=== PATIENT | male | born 1960 ===

== ENCOUNTER 2017-10-15 10:23 | Emergency (ER) | payer OTHER ==
--- NOTE | 2017-10-15 11:31 | ED PDOC ---
Syncope/Near Syncope/Dizziness Chief Complaint (Provider): syncope History Per: Patient History/Exam Limitations: no limitations Onset/Duration Of Symptoms: Hrs Current Symptoms Are (Timing): Better Number Of Syncopal Episodes: 1 Activity At Onset Of Symptoms: Had Just Stood up Associated Symptoms Preceding Syncopal Episode: Lightheadedness, Worse With Standing Seizure Or Post-ictal Symptoms: None Fall Associated With With Symptoms: Yes, Positive Injury Severity: Moderate Pain Scale Rating Of: 0 Additional Complaint(s): 56 yr old M presents to ED via ambulance with complaint of head trauma s/p syncopal episode. Patient denies any PMHx. Reports he was sitting in a restaurant waiting to order breakfast when he felt light headed, he stood up quickly to go to the bathroom with the intent to splash cold water on his face, he reports suddenly losing consciousness before making it to the bathroom. Syncopal episode was unwitnessed, patient reports he woke up on the floor and stood up by himself without assistance, he noticed blood on the floor and restaurant staff then called EMS when they saw a some blood on his head. Denies urinary or fecal incontinence, weakness, confusion, visual changes, chest pain, palpitations or one sided weakness. Denies prior syncopal episode. PMD: Dr. 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 Medications: multivitamins AllergiesL NKDA - Risk Factors PE Risk Factors: Neg: Extremity Immobilization/Fx, Decreased Mobilty /Activity, Recent Major Surgery, Previous DVT, Previous PE Risk Factors (Syncope): Neg: H/O Ventricular Arrhythmias, H/O Severe Valvular Disease, Exertional Syncope <Amanda Stafford - Last Filed: 10/15/17 16:58> <Mo Farooq - Last Filed: 10/16/17 14:48> Time Seen by Provider: 10/15/17 10:38 Chief Complaint (Nursing): Syncope Supervising Attending Note - Supervising Attending Note The Documented history was done by the: Physician Liner Worker, Attending Physician The documented physical exam was done by the: Physician Liner Worker, Attending Physician The documented procedures were done by the: Physician Liner Worker, Attending Physician - Attestation: I have personally seen and examined this patient.: Yes I have fully participated in the care of the patient.: Yes I have reviewed all pertinent clinical information: Yes <Mo Farooq - Last Filed: 10/16/17 14:48> Past Medical History Vital Signs: Last Vital Signs Temp 97.6 F 10/15/17 10:31 Pulse 82 10/15/17 10:31 Resp 18 10/15/17 10:31 BP 125/85 10/15/17 10:31 Pulse Ox 100 10/15/17 10:31 - Medical History PMH: No Chronic Diseases - Surgical History Surgical History: No Surg Hx - Family History Family History: States: Other Other Family History: father from heart attack at age 67 yrs old, mother alive and healthy - Living Arrangements Living Arrangements: With Family - Social History Current smoker - smoking cessation education provided: No Alcohol: Social Drugs: Denies - Immunization History Hx Tetanus Toxoid Vaccination: No Hx Influenza Vaccination: No Hx Pneumococcal Vaccination: No <Amanda Stafford - Last Filed: 10/15/17 16:58> Reviewed: Historical Data, Nursing Documentation, Vital Signs Vital Signs: Last Vital Signs Temp 97.6 F 10/15/17 10:31 Pulse 82 10/15/17 10:31 Resp 18 10/15/17 10:31 BP 125/85 10/15/17 10:31 Pulse Ox 100 10/15/17 11:45 <Mo Farooq - Last Filed: 10/16/17 14:48> - Allergies Allergies/Adverse Reactions: Allergies Allergy/AdvReac Type Severity Reaction Status Date / Time No Known Allergies Allergy Verified 10/15/17 10:31 Review of Systems Constitutional: Negative for: Fever, Chills Eyes: Negative for: Vision Change ENT: Negative for: Throat Pain Cardiovascular: Positive for: Light Headedness. Negative for: Chest Pain, Palpitations, Orthopnea Respiratory: Negative for: Cough, Shortness of Breath, Hemoptysis, Wheezing Gastrointestinal: Negative for: Nausea, Vomiting, Abdominal Pain, Diarrhea Genitourinary Male: Negative for: Dysuria, Frequency Musculoskeletal: Negative for: Neck Pain, Shoulder Pain, Arm Pain Skin: Negative for: Rash, Lesions Neurological: Negative for: Weakness, Change in Speech, Confusion, Headache, Dizziness Psych: Negative for: Anxiety, Depression <Amanda Stafford - Last Filed: 10/15/17 16:58> ROS Statement: Except As Marked, All Systems Reviewed And Found Negative <Mo Farooq - Last Filed: 10/16/17 14:48> Physical Exam - Physical Exam Appears: Positive for: No Acute Distress Head Exam: Negative for: ATRAUMATIC (left parieto-occipital scalp: 1 cm vertical lacertion x 0.5 cm deep with minimal bleeding, no foreign body, swelling or tenderness to palpation; 2 cm horizontal lacertion x 0.5cm deep with minimal bleeding, no foreign body, no swelling or tenderness to palpation) Skin: Positive for: Normal Color, Warm, Dry Eye Exam: Positive for: EOMI, PERRL ENT: Negative for: Pharyngeal Erythema, Tonsillar Exudate Neck: Positive for: Painless ROM, Supple Cardiovascular/Chest: Positive for: Regular Rate, Rhythm. Negative for: Gallop , Murmur, Bradycardia, Tachycardia Respiratory: Positive for: Normal Breath Sounds. Negative for: Crackles, Rales Pulses-Carotid (L): 2+ Pulses-Carotid (R): 2+ Pulses-Dorsalis Pedis (L): 2+ Pulses-Dorsalis Pedis (R): 2+ Pulses-Radial (L): 2+ Pulses-Radial (R): 2+ Gastrointestinal/Abdominal: Positive for: Bowel Sounds (present), Soft. Negative for: Tenderness Back: Positive for: Normal Inspection. Negative for: L CVA Tenderness, R CVA Tenderness Extremity: Positive for: Normal ROM. Negative for: Tenderness, Pedal Edema, Calf Tenderness, Swelling Lymphatic: Positive for: Normal Exam Neurologic/Psych: Positive for: Alert, cloth checker II-XII, Oriented, Mood/Affect (normal /full range), Gait (normal). Negative for: Motor/Sensory Deficits, Aphasia, Facial Droop <Amanda Stafford - Last Filed: 10/15/17 16:58> - Reviewed Nursing Documentation Reviewed: Yes Vital Signs Reviewed: Yes <Mo Farooq - Last Filed: 10/16/17 14:48> - Laboratory Results Result Diagrams: 10/15/17 11:30 10/15/17 11:30 - ECG O2 Sat by Pulse Oximetry: 100 - Progress ED Course And Treament: -EKg, cardiac monitoring -troponin, accucheck, CBC w/diff, BMP -CT head without contrast -Tdap vaccine -11:44 Patient sitting comfortably in bed, denies weakness/dizziness/malaise; is requesting breakfast -CT head showed no acute intracranial abnormalities. -14:31 Patient tolerated laceration repair with alyse. Patient tolerated PO diet, remains asymptomatic with normal vital signs. <Amanda Stafford - Last Filed: 10/15/17 16:58> - Laboratory Results Result Diagrams: 10/15/17 11:30 10/15/17 11:30 <Mo Farooq - Last Filed: 10/16/17 14:48> Medical Decision Making Medical Decision Makin:[address] FINDINGS: HEMORRHAGE: No intracranial hemorrhage. BRAIN: No mass effect or edema. No atrophy or chronic microvascular ischemic changes. VENTRICLES: Unremarkable. No hydrocephalus. CALVARIUM: Unremarkable. PARANASAL SINUSES: Unremarkable as visualized. No significant inflammatory changes. MASTOID AIR CELLS: Unremarkable as visualized. No inflammatory changes. OTHER FINDINGS: High left posterior parietal scalp contusion IMPRESSION: No acute intracranial abnormalities. No significant findings to account for the clinical presentation. Additional benign and/or incidental findings described above. 12:58 -Patient reports significant improvement. He feels better and has no complaints. <Mo Farooq - Last Filed: 10/16/17 14:48> Procedures - Time-Out Type of Procedure: Laceration repair Site of Procedure: occipital scalp Correct Patient: Yes Correct Procedure: Yes Correct Site Marked: Yes Physician Name: Mo Farooq - Laceration/Wound Repair Occipital Wound Length (cm): 6 Wound's Depth, Shape: superficial, linear Wound Explored: clean (No active bleeding) Wound Repaired With: Alyse (3) Wound Complexity: Simple Progress: Patient tolerated procedure well, there were no complications. Parietal Wound Length (cm): 3 Wound's Depth, Shape: superficial, linear Wound Explored: clean (no active bleeding) Wound Repaired With: Alyse (2) Wound Complexity: Simple Progress: Patient tolerated procedure well, there were no complications. <Mo Farooq - Last Filed: 10/16/17 14:48> Disposition - Patient ED Disposition Is Patient to be Admitted: No Counseled Patient/Family Regarding: Need For Followup - Disposition Disposition: Routine/Home Disposition Time: 14:26 <Amanda Stafford - Last Filed: 10/15/17 16:58> Counseled Patient/Family Regarding: Studies Performed, Diagnosis <Mo Farooq - Last Filed: 10/16/17 14:48> - Clinical Impression Clinical Impression: Syncope, Laceration of scalp without foreign body - Disposition Referrals: Cricket Graham MD [Family Provider] - Condition: GOOD Additional Instructions: -follow up with your PMD Dr. Graham within 1 week -Return to ED or PMD in 1 week for scalp staple removal -Return to ED if worsening of symptoms, altered mental status or any concerns Instructions: Syncope (Fainting), Laceration Repair With Alyse (DC) - PA / TRACK MAINTAINER / Resident Statement / has reviewed & agrees with the documentation as recorded. / has examined the patient and agrees with the treatment plan. <Mo Farooq - Last Filed: 10/16/17 14:48>
[2017-10-15] MEDS ORDERED: Tdap Vaccine 0.5 ml Vial (10-64 yrs) IM ONE ×2 (11:43→11:50)
[2017-10-15 11:45] LABS: BASO # 0.1 K/uL (0.0-0.2); BASO % 0.7 % (0.0-2.0); EOS # 0.3 K/uL (0.0-0.7); EOS % 3.7 % (0.0-4.0); HEMOGLOBIN 16.1 g/dL (12.0-18.0); LYMPH # 1.4 K/uL (1.0-4.3); LYMPH % 16.2 % (20.0-40.0); MEAN CELL VOLUME 87.7 fl (80.0-94.0); MEAN CORPUSCULAR HEMOGLOBIN 30.6 pg (27.0-31.0); MEAN CORPUSCULAR HGB CONC 34.9 g/dL (33.0-37.0); MEAN PLATELET VOLUME 9.1 fl (7.2-11.7); MONO # 0.4 K/uL (0.0-0.8); MONO % 4.1 % (0.0-10.0); NEUT # 6.5 K/uL (1.8-7.0); NEUT % 75.3 % (50.0-75.0); NRBC % 0.1 % (0.0-0.0); RBC 5.25 Mil/uL (4.40-5.90); RED CELL DISTRIBUTION WIDTH 13.7 % (11.5-14.5); WHITE BLOOD COUNT 8.6 K/uL (4.8-10.8)
[2017-10-15 12:02] LABS: BLOOD UREA NITROGEN 20 mg/dl (9-20); CALCIUM 8.9 mg/dL (8.4-10.2); GFR AFRICAN-AMERICAN > 60; GFR NON-AFRICAN AMERICAN > 60
--- NOTE | 2017-10-15 12:26 | CT ---
PROCEDURE: CT HEAD WITHOUT CONTRAST. HISTORY: head trauma s/p syncopal episode COMPARISON: None available. TECHNIQUE: Axial computed tomography images were obtained through the head/brain without intravenous contrast. Coronal and sagittal reconstructed images. Radiation dose: Total exam DLP = 833.33 mGy-cm. This CT exam was performed using one or more of the following dose reduction techniques: Automated exposure control, adjustment of the mA and/or kV according to patient size, and/or use of iterative reconstruction technique. FINDINGS: HEMORRHAGE: No intracranial hemorrhage. BRAIN: No mass effect or edema. No atrophy or chronic microvascular ischemic changes. VENTRICLES: Unremarkable. No hydrocephalus. CALVARIUM: Unremarkable. PARANASAL SINUSES: Unremarkable as visualized. No significant inflammatory changes. MASTOID AIR CELLS: Unremarkable as visualized. No inflammatory changes. OTHER FINDINGS: High left posterior parietal scalp contusion IMPRESSION: No acute intracranial abnormalities. No significant findings to account for the clinical presentation. Additional benign and/or incidental findings described above.
[2017-10-15 14:24] VITALS: O2SAT 100
[2017-10-15 14:57] VITALS: BP 138/66; PULSE 72; RESP 17; TEMP 98
== END 2017-10-15 14:55 | disposition home or self-care (01) ==
LOC: H.ER 10:23
DX: S01.01XA Laceration without foreign body of scalp, initial encounter (principal); R55 Syncope and collapse